=== PATIENT | male | born 1960 | race Caucasian/White ===

== ENCOUNTER 2024-07-28 22:00 | Emergency (ER) | payer MEDICAID, MEDICARE ==
[2024-07-29] MEDS ORDERED: Propofol 200 MG/20 ML SDV ONE (00:21)
[2024-07-29] MEDS: Acetaminophen/HYDROcodone 325-5 MG Tab PO ONE (00:56)
== END 2024-07-29 01:10 | disposition home or self-care (01) ==
LOC: JP.ED 22:00
DX: S43.015A Anterior dislocation of left humerus, initial encounter (principal); I25.2 Old myocardial infarction; I10 Essential (primary) hypertension; Z88.2 Allergy status to sulfonamides; Z79.899 Other long term (current) drug therapy; W01.0XXA Fall on same level from slipping, tripping and stumbling without subsequent striking against object, initial encounter
CPT/HCPCS: 23650; 73020; 73030; 99283; A9270; J2704; 99156